=== PATIENT | female | born 1965 | race Caucasian/White ===

== ENCOUNTER 2018-09-30 16:58 | Emergency (ER) | payer BC, OTHER, SELFPAY ==
[2018-09-30 17:00] VITALS: BP 167/123; PULSE 120; RESP 18; TEMP 36.6; O2SAT 98; BMI 32.3
[2018-09-30 17:38] VITALS: BP 154/94
--- NOTE | 2018-09-30 18:08 | ED.VISSUMM ---
- ER Visit Summary Date of Service: 09/30/18 Chief Complaint: Nosebleed History of Present Illness: The patient is a 53 F who presents with nosebleed that began yesterday. Patient states her bleeding has been mostly out of the left nares. Patient states it would bleed for a while then stopped. Patient states the last episode there was a large amount of bleeding with clots. Patient states she also had some bleeding going down the back of her throat. Patient states she has had a recent upper respiratory infection and bronchitis. Patient states she was blowing her nose frequently over the last few days. Patient states she has also been taking [id number]-kub-[id number] decongestants. Patient states she was put on a course of prednisone approximately 2 weeks ago for sinusitis. Physical Examination: Vital signs are stable except for mild tachycardia of 120. Patient is afebrile. Patient is in no acute distress. Oral mucosa is pink and moist. Oropharynx shows some bloody postnasal drainage. Nasal mucosa is pink and moist. There is some mild bleeding over the left anterior nasal septum. Neck is supple. Trachea is midline. There is no JVD or lymphadenopathy noted. Heart was regular rate and rhythm. Lungs are clear and equal bilaterally. Cranial nerves II through XII are intact. There are no focal motor or sensory deficits noted. The remaining physical exam is within normal limits. Emergency Department Course and Treatment: Thrombin nasal spray was applied to the left nares. Patient was observed in the emergency department after this. There are no further episodes of epistaxis. Patient was instructed to follow-up with her primary care physician in 5-7 days. Patient understood and was agreeable with the plan. All questions were answered. Disposition: Discharge home Impression: Epistaxis This note was generated with [employer] dictation software. It may contain incorrect words, spelling, and punctuation that were not noted in review of the chart prior to signing ED Disposition - Plan for ED Patient: Disposition: Home or Assisted Living Chief Complaint: Nosebleed Diagnosis: Anterior epistaxis Instructions: Nosebleed Referrals: South Borges MD [Primary Care Provider] -
--- NOTE | 2018-09-30 18:12 | ED.DCSUM_ITS ---
- ER Visit Summary Date of Service: 09/30/18 Chief Complaint: Nosebleed History of Present Illness: The patient is a 53 F who presents with nosebleed that began yesterday. Patient states her bleeding has been mostly out of the left nares. Patient states it would bleed for a while then stopped. Patient st ates the last episode there was a large amount of bleeding with clots. Patient states she also had some bleeding going down the back of her throat. Patient states she has had a recent upper respiratory infection and bronchitis. Patient states she was blowing her nose frequently over the last few days. Patient states she has also been taking [id number]-bnq-pxflbol decongestants. Patient states she was put on a course of prednisone approximately 2 weeks ago for sinusitis. Physical Examination: Vital signs are stable except for mild tachycardia of 120. Patient is afebrile. Patient is in no acute distress. Oral mucosa is pink and moist. Oropharynx shows some bloody postnasal drainage. Nasal mucosa is pink and moist. There is some mild bleeding over the left anterior nasal septum. Neck is supple. Trachea is midline. There is no JVD or lymphadenopathy noted. Heart was regular rate and rhythm. Lungs are clear and equal bilaterally. Cranial nerves II through XII are intact. There are no focal motor or sensory deficits noted. The remaining physical exam is within normal limits. Emergency Department Course and Treatment: Thrombin nasal spray was applied to the left nares. Patient was observed in the emergency department after this. There are no further episodes of epistaxis. Patient was instructed to follow-up with her primary care physician in 5-7 days. Patient understood and was agreeable with the plan. All questions were answered. Disposition: Discharge home Impression: Epistaxis This note was generated with [employer] dictation software. It may contain incorrect words, spelling, and punctuation that were not noted in review of the chart prior to signing ED Disposition - Plan for ED Patient: Disposition: Home or Assisted Living Chief Complaint: Nosebleed Diagnosis: Anterior epistaxis Instructions: Nosebleed Referrals: South Borges MD [Primary Care Provider] -
--- NOTE | 2018-09-30 20:05 | ED.RN ---
PT INITIALLY DISCHARGED AND STARTED BLEEDING UPON LEAVING ED. PT ESCORTED BACK INTO ROOM AND MD NOTIFIED. MD GAVE AFRIN AND PACKED BOTH NASAL PASSAGES. WILL CONTINUE TO MONITOR. BLEEDING HAS SLOWED SIGNIFICANTLY
--- NOTE | 2018-09-30 21:43 | ED.RN ---
PT CALLED OUT STATING HER NOSE WAS BLEEDING COPIUS AMOUNTS AGAIN. MD NOTIFIED. VITAL SIGNS OBTAINED
[2018-09-30] MEDS: Smz/Tmp Ds Tablet 1 TABLET PO (23:01)
[2018-09-30 23:09] LABS: Absolute Lymphocyte Count 0.67 X10^3/ul (0.83-4.51); Absolute Neutrophil Count 3.8 X10^3/uL (2.0-7.7); Hemoglobin 12.6 g/dl (12.0-15.0); Lymphocyte # 0.67 X10^3/ul (4.0); Lymphocyte % 13.9 % (19-41); Mean Corp Hgb Conc 33.2 g/gl (32-36); Mean Corpuscular Hgb 30.2 pg (27.0-32.0); Mean Corpuscular Volume 91.1 fL (81-99); Mean Platelet Vol. 9.5 fl (6.2-12.0); Monocyte# 0.39 X10^3/uL; Monocyte% 8.1 % (0-10); Neutrophil # 3.76 X10^3/uL (2.7-7.7); Platelet Count 196 K/mm3 (150-450); RBC Distribution Width CV 12.5 % (11.6-14.6); RBC Distribution Width SD 40.6 fl (35.1-43.9); Red Blood Count 4.17 M/mm3 (4.2-5.4); White Blood Count 4.8 K/mm3 (4.4-11.0)
[2018-09-30 23:10] LABS: POSITIVE COUNT NO; POSITIVE DIFFERENTIAL NO; POSITIVE MORPHOLOGY NO
--- NOTE | 2018-09-30 23:39 | ED.DCSUM_ITS ---
- ER Visit Summary Date of Service: 09/30/18 Chief Complaint: [] History of Present Illness: The patient is a 53 F [] Physical Examination: [] Test Results: [] Emergency Department Course and Treatment: [] Treatment Plan: [] Disposition: [] Impression: [] This note was generated with [employer] dictation software. It may contain incorrect words, spelling, and punctuation that were not noted in review of the chart prior to signing ED Disposition - Plan for ED Patient: Disposition: Home or Assisted Living Chief Complaint: Nosebleed Diagnosis: Anterior epistaxis Instructions: Nosebleed Prescriptions: Smz/Tmp Ds [Bactrim Ds] 1 tab PO BID #14 tab Referrals: South Borges MD [Primary Care Provider] - Vasile Juarez MD [STAFF PHYSICIAN] -
--- NOTE | 2018-09-30 23:43 | ED.RN ---
PT GIVEN WRITTEN AND VERBAL DISCHARGE INSTRUCTIONS AND HOME GOING PRESCRIPTIONS. PT VERBALIZES UNDERSTANDING AND DENIES ANY FURTHER QUESTIONS. PT TO FOLLOW UP WITH DR. HOWELL BY CONTACTING THE OFFICE IN THE MORNING. PT BP 155/97, HR 100, RR 15, SPO2 98% ON RA. PT TO RETURN TO ED FOR ANY NEW OR WORSENED SX. AMBULATES OUT OF DEPT BY SELF.
== END 2018-09-30 23:45 | disposition home or self-care (01) ==
PROVIDERS: Emergency Provider Emergency Medicine; Family Provider Family Medicine; PCP Family Medicine
DX: R04.0 Epistaxis (principal); R00.0 Tachycardia, unspecified; R05 Cough; I10 Essential (primary) hypertension; Z90.710 Acquired absence of both cervix and uterus
CPT/HCPCS: 30901; 36415; 85025; 99282